=== PATIENT | male | born 1950 | race Caucasian/White ===

== ENCOUNTER 2017-02-03 13:18 | Observation (INO) | payer MEDICARE, OTHER ==
[~2017-02-03] VITALS: Ht 188 cm; Wt 112.8 kg
--- NOTE | ~2017-02-03 | HEMODYNAMI ---
PATIENT:ARTURO BRICENO MEDICAL RECORD: [id number] : 46 LOCATION:[facility] D.2121 ADMISSION DATE: 02/03/17 Generatedon:02/04/20178:55 Patient name: ARTURO BRICENO Patient #: [id number] SSN: DO B: 1950 Date of study: 02/04/2017 Page: Of Hemodynamic Procedure Report Patient Data Patient Demographics Procedure consent was obtained First Name: ARTURO Gender: Male Last Name: KAITY : 1950 Middle Initial: L Age: 66 year(s) Patient #: [id number] Race: Unknown Additional ID: [id number] Contact details [address]: [address] [place] [address] State: [place] City: [place] Zip code: [address] Past Medical History Allergies Allergen Reaction Date Comments Reported Other allergy 05/30/2015 Other allergy 05/30/2015 CODIENE, Other allergy 02/04/2017 Codeine Admission Admission Data Admission Date: 02/03/2017 Admission Time: 14:56 Room #: D.2121 Lab Results Lab Result Date: 02/04/2017 Lab Result Time: 4:33 Biochemistry Name Units Result Min Max BUN mg/dl 12 --(-*--)-- 7 18 Creatinine mg/dl 0.8 --(-*--)-- 0.6 1.3 CBC Name Units Result Min Max Hematocrit % 36.1 *-(----)-- 42 54 Hemoglobin g/dl 12.1 *-(----)-- 13.5 17.5 Procedure Procedure Types Cath Procedure Diagnostic Procedure LHC [facility] w/Coronaries Miscellaneous Procedures Moderate Sedation up to 30 minutes Procedure Description Procedure Date Procedure Date: 02/04/2017 Procedure Start Time: 8:32 Procedure End Time: 8:54 Procedure Staff Name Function Cash Ho MD Performing Physician Marian Cabrera RT Scrub Jesi Quiñonez RN Nurse Ok Franz RT Monitor Joaquin Aguilar RN Synthetic Cloth Binding Cutter Procedure Data Cath Procedure Fluoroscopy Diagnostic fluoroscopy Total fluoroscopy Time: 4.3 time: 4.3 min min Diagnostic fluoroscopy Total fluoroscopy dose: dose: 1094 mGy 1094 mGy Contrast Material Contrast Material Type Amount (ml) Isovue 300 114 Entry Location Entry Primary Successful Side Size Upsize Upsize Entry Closure Mims ccessful Closure Location (Fr) 1 (Fr) 2 (Fr) Remarks Device Remarks Radial Right 6 Fr Mechanical artery Short Compression Estimated blood loss: 5 ml Diagnostic catheters Device Type Used For End Catheter Placement Terumo Optitorque 5Fr Procedure Connie catheter Diagnostic Terumo 5Fr Procedure [place] 110cm catheter Terumo 5Fr Bryan 110cm Procedure catheter Procedure Complications No complications Procedure Medications Medication Administration Route Dosage Oxygen NC 2 l/min Lidocaine 2% added to field 20 Heparin Flush Bag added to field 2 bags (1000units/500ml NS) 0.9% NaCl I.V. 100 ml/hr Versed I.V. 1 mg Fentanyl I.V. 50 mcg Versed I.V. 1 mg Fentanyl I.V. 50 mcg Radial Cocktail I.A. 1 syringe (Verapomil 2mg/Nitro 400mcg/Heparin 1500units) Versed I.V. 1 mg Fentanyl I.V. 50 mcg Fentanyl I.V. 25 mcg Hemodynamics Rest HGB: 12.1 (g/dl) Heart Rate: 84 (bpm) Pressure Samples Time Site Value (mmHg) Purpose Heart Use Rate(bpm) 8:37 LV 144/9,30 Snapshot 77 8:38 AO 123/72(95) Pullback 80 8:38 LV 130/4,19 Pullback 80 Gradients Valve Time Site 1 Site 2 Mean SEP/DFP Peak To Heart Use (mmHg) (sec/min) Peak Rate (mmHg) (bpm) Aortic 8:38 LV AO 16 19 7 80 130/4,19 123/72(95) Calculations Valve P-P Mean Valve Index Valve Source Name Gradient Area Flow (cm2) Aortic 7 16 7 16 Snapshots Pre Cath Intra NCS Post Cath Vital Signs Time Heart Resp SPO2 etCO2 [id number] NIBP (mmHg) Rhythm Pain Status Se dation Rate (ipm) (%) (mmHg) (mmHg) Level (bpm) 8:10:25 87 17 100 0 0 207/109(135) NSR 2 (11) , 10 (A) Uncomfortable 8:14:53 84 17 99 0 0 207/99(146) NSR 2 (11) , 10 (A) Uncomfortable 8:19:17 84 16 98 0 0 190/90(137) NSR 2 (11) , 10 (A) Uncomfortable 8:23:41 84 15 95 0 0 186/84(131) NSR 2 (11) , 10 (A) Uncomfortable 8:28:14 84 17 97 0 0 194/86(129) NSR 0 (11) , No 9( A) pain 8:33:42 85 17 95 0 0 198/92(134) NSR 0 (11) , No 9( A) pain 8:38:18 85 17 94 0 0 189/77(116) NSR 0 (11) , No 9( A) pain 8:42:42 85 16 95 0 0 182/83(110) NSR 0 (11) , No 9( A) pain 8:48:12 87 18 96 0 0 195/75(114) NSR 0 (11) , No 9( A) pain 8:53:52 88 18 96 0 0 187/76(117) NSR 0 (11) , No 10 (A) pain Medications Time Medication Route Dose Verified Delivered Reason Notes E ffectiveness by by 8:13:20 Oxygen NC 2 l/min Cash Buffie used for Vic Quiñonez RN procedure 8:13:26 Lidocaine 2% added 20ml Cash Cash for local to vial Vic Ho MD anesthetic field 8:13:32 Heparin Flush added 2 bags Cash Cash used for Bag to Vic Ho MD procedure (1000units/500ml field NS) 8:13:42 0.9% NaCl I.V. 100 Cash Buffie Per ml/hr Vic Quiñonez RN physician 8:24:39 Versed I.V. 1 mg Cash Buffie for sedation Vic Quiñonez RN 8:24:46 Fentanyl I.V. 50 mcg Cash Buffie for sedation Vic Quiñonez RN 8:30:30 Versed I.V. 1 mg Cash Buffie for sedation Vic Quiñonez RN 8:30:33 Fentanyl I.V. 50 mcg Cash Buffie for sedation Vic Quiñonez RN 8:36:24 Fentanyl I.V. 25 mcg Cash Buffie for sedation Vic Quiñonez RN 8:36:41 Radial Cocktail I.A. 1 Cash Cash for (Verapomil syringe Vic Ho MD vasodilation 2mg/Nitro 400mcg/Heparin 1500units) 8:46:17 Versed I.V. 1 mg Cash Estevanie for sedation Vic Quiñonez RN 8:46:21 Fentanyl I.V. 50 mcg Cash Dennison for sedation Vic Quiñonez RN Procedure Log Time Note 7:44:40 Joaquin Aguilar RN sent for patient. Start room use. 7:44:41 Time tracking: Regular hours 7:44:45 Plan of Care:Hemodynamics will remain stable., Cardiac rhythm will remain stable., Comfort level will be maintained., Respiratory function will remain adequate., Patient/ family verbilizes understanding of procedure., Procedure tolerated without complication., Recovers from procedure without complications.. 8:01:46 Patient received from PCU to CCL 1 Alert and oriented. Tansferred to table in Supine position. 8:01:47 Warm blankets applied, and leila hugger turned on for patient comfort. 8:01:48 Correct patient and procedure confirmed by team. 8:01:49 Signed procedure consent form obtained from patient. 8:01:50 ECG and BP/O2 sat monitors applied to patient. 8:02:36 H&P Date Dictated: 02/03/2017 Within 30 days and on chart.. 8:02:38 Pre-procedure instructions explained to patient. 8:02:39 Pre-op teaching completed and patient verbalized understanding. 8:08:05 Vital chart was started 8:13:20 Oxygen 2 l/min NC was administered by Jesi Quiñonez RN; used for procedure; 8:13:26 Lidocaine 2% 20ml vial added to field was administered by Cash Ho MD; for local anesthetic; 8:13:32 Heparin Flush Bag (1000units/500ml NS) 2 bags added to field was administered by Cash Ho MD; used for procedure; 8:13:42 0.9% NaCl 100 ml/hr I.V. was administered by Jesi Quiñonez RN; Per physician; 8:14:50 Baseline sample Acquired. 8:15:07 Baseline sample Acquired. 8:15:13 Rhythm: paced 8:15:19 Family in patients room. 8:15:23 Patient NPO since Midnight. 8:15:32 Patient allergic to Other allergyCodeine 8:15:36 Is the patient allergic to Iodine/contrast media? No. 8:15:39 Is patient on blood thinner?Yes 8:15:41 ACC The patient was administered the following blood thiners within the last 24 hours: ACCPlavix 8:15:46 Patient diabetic? Yes. 8:15:47 If diabetic: On Metformin? No 8:15:51 Previous problem with sedation/anesthesia? No ? 8:15:51 Snore? Yes 8:15:54 Sleep apnea? No 8:15:56 Deviated septum? No 8:15:57 Opens mouth fully? Yes 8:15:58 Sticks out tongue? Yes 8:15:59 Airway obstruction? No ? 8:16:01 Dentures? No ? 8:16:06 Pre procedure: right dorsailis pedis pulse 2+ Normal; easily identifiable; not easily obliterated 8:16:08 Pre procedure: left dorsailis pedis pulse 2+ Normal; easily identifiable; not easily obliterated 8:16:10 Modified Candido's test Ulnar < 7 seconds 8:16:12 Patient pain scale 2/10 ?. 8:16:17 IV patent on arrival in right forearm with 0.9% NaCl at [facility]. 8:16:53 Lab Result : BUN 12 mg/dl 8:16:53 Lab Result : Hemoglobin 12.1 g/dl 8:16:53 Lab Result : Creatinine 0.8 mg/dl 8:16:53 Lab Result : Hematocrit 36.1 % 8:18:17 IV Extension Set opened to sterile field. 8:21:07 Lab results completed and on chart. 8:21:11 Right Radial & Left Groin area was prepped with chlora-prep and draped in sterile fashion 8:21:13 Alarms reviewed by R. N. 8:21:13 Sharps counted by scrub and verified by R.N. 8:21:15 Physician arrived 8:21:22 Use device set Radial Dx 8:21:23 MBrace Wrist Support opened to sterile field. 8:21:24 Tegaderm 4 x 4 opened to sterile field. 8:21:25 Acist Manifold opened to sterile field. 8:21:25 Acist Hand Control opened to sterile field. 8:21:26 High Pressure Extension Tubing (Ho) opened to sterile field. 8:: Acist Syringe opened to sterile field. 8:: Medline Cath Pack opened to sterile field. 8::28 Bag Decanter opened to sterile field. 8:: St Jonas 260cm J .035 wire opened to sterile field. 8::34 --------ALL STOP TIME OUT------ 8:: Final Timeout: patient, procedure, and site verified with staff and physician. All members of the team are in agreement. 8:21:36 Right Radial & Left Groin site verified by team. 8::38 Physical assessment completed. ASA score P 2 - A patient with mild systemic disease as per Cash Ho MD. 8::41 Sedation plan: IV Moderate Sedation Versed, Fentanyl 8:24:39 Versed 1 mg I.V. was administered by Jesi Quiñonez RN; for sedation; 8:24:46 Fentanyl 50 mcg I.V. was administered by Jesi Quiñonez RN; for sedation; 8:25:04 Zero performed for pressure channel P1 8:25:16 Merit Prelude 6Fr Radial Sheath (NO COST SUPPLY) opened to sterile field. 8:25:36 Zero performed for pressure channel P1 8:30:30 Versed 1 mg I.V. was administered by Jesi Quiñonez RN; for sedation; 8:30:33 Fentanyl 50 mcg I.V. was administered by Jesi Quiñonez RN; for sedation; 8:32:04 Procedure started. 8:32:04 Full Disclosure recording started 8:32:09 Local anesthetic to right radial artery with Lidocaine 2% by Cash Ho MD.INITIAL ACCESS ONLY 8:32:17 A 6 Fr Short sheath was inserted into the Right Radial artery 8:36:24 Fentanyl 25 mcg I.V. was administered by Jesi Quiñonez RN; for sedation; 8:36:35 A rSmart Optitorque 5Fr Connie catheter was advanced over the wire and used for Procedure. 8:36:41 Radial Cocktail (Verapomil 2mg/Nitro 400mcg/Heparin 1500units) 1 syringe I.A. was administered by Cash Ho MD; for vasodilation; 8:37:36 LV gram done using COSME 8:37:38 Injector settings: Ml/sec: 5, Volume: 15, 8:38:03 EF : 20 % 8:38:16 LV hemodynamics recorded. 8:38:53 LCA angiography performed. 8:40:06 RCA angiography performed. 8:40:11 Catheter exchanged over wire. 8:40:32 A Diagnostic Terumo 5Fr [place] 110cm catheter was advanced over the wire and used for Procedure. 8:41:51 LCA angiography performed. 8:44:37 Catheter exchanged over wire. 8:45:38 A Terumo 5Fr Bryan 110cm catheter was advanced over the wire and used for Procedure. 8:46:17 Versed 1 mg I.V. was administered by Jesi Quiñonez RN; for sedation; 8:46:21 Fentanyl 50 mcg I.V. was administered by Jesi Quiñonez RN; for sedation; 8:47:02 LCA angiography performed. 8:49:28 Catheter removed. 8:49:36 Terumo TR Band Standard opened to sterile field. 8:50:14 Sheath removed intact; hemostasis achieved with Mechanical Compression to the Right Radial artery. 8:50:16 Procedure ended.(Physican Out) 8:51:26 Fluoroscopy time 04.30 minutes. 8:51:54 Fluoroscopy dose: 1094 mGy 8:51:54 Flurop Dose total: 1094 8:51:58 Contrast amount:Isovue 300 114ml. 8:51:59 Sharps counted by scrub and verified by R.N. 8:52:01 TR band inflated with 10cc of air. 8:52:03 Insertion/operative site no bleeding no hematoma. 8:52:09 Post right radial artery:stable, soft, clean and dry 8:52:10 Post Procedure Pulses reassessed and unchanged 8:52:12 Post-procedure physical assessment completed. ASA score P 2 - A patient with mild systemic disease as per Cash Ho MD. 8:52:14 Post procedure rhythm: unchanged. 8:52:18 Estimated blood loss: 5 ml 8:52:19 Post procedure instruction explained to patient.Patient verbalizes understanding. 8:52:19 Patient needs reinforcement of post procedure teaching. 8:53:09 Procedure type changed to Cath procedure, Diagnostic procedure, LHC, LHC w/Coronaries, Miscellaneous Procedures, Moderate Sedation up to 30 minutes 8:54:24 Procedure and supply charges have been captured, reviewed, submitted and are correct. 8:54:26 Procedure Complication : No complications 8:54:28 Vital chart was stopped 8:54:29 See physician's report for complete and final results. 8:54:32 Report given to PCU. 8:54:34 Patient transfered to PCU with Stretcher. 8:54:36 Procedure ended. 8:54:36 Full Disclosure recording stopped 8:54:45 End room use (Document Last) Device Usage Item Name Manufacture Quantity Catalog Hospital Part Current Minimal Lot# / Number Charge Number Stock Stock Serial# Code IV Hospira 1 71949-50 [id number] 29519 151070 5 Extension Set MBrace Advanced 1 140-0250-00 882996 77613 621639 5 Wrist Vascular Support Dynamics Tegaderm 4 3M 1 1626W 538220 096621 857286 5 x 4 Acist Acist 1 50738 372541 057152 609943 5 Manifold Medical Systems Inc Acist Hand Acist 1 59645 297558 972469 455044 5 Control Medical [employer] Inc High Merit 1 [id number] 607523 51336 693592 10 Pressure Medical Extension Tubing (Ho) Acist Acist 1 68039 824858 832037 100445 20 Syringe Medical Systems Inc Medline Cardinal 1 [id number] 132369 21636 036036 5 Cath Pack Health Bag Microtek 1 2002S 305394 44837 487258 [address] Jonas St Jonas 1 156318 925625 103074 855750 30 260cm J .035 wire Merit Merit 1 [id number] 656956 547383 5 Prelude Medical 6Fr Radial Sheath (NO COST SUPPLY) Terumo Terumo 1 40-8183 953419 170288 400363 5 Optitorque 5Fr Connie catheter Diagnostic Terumo 1 40-7470 716380 821455 957438 5 Terumo 5Fr [place] 110cm catheter Terumo 5Fr Terumo 1 40-2260 287231 179586 854885 5 Bryan 110cm catheter Terumo TR Terumo 1 [id number] 355470 763045 481399 40 Band Standard Signature Audit [place] Stage Time Signature Unsigned Intra-Procedure 02/04/2017 Ok Franz 8:55:27 AM RT(R) Signatures Monitor : Ok Franz RT Signature : Date : Time : [facility] [address] [place] [address]
[~2017-02-03 13:18] MED LIST: ANDROGEL5 GM; ASPIRIN EC81 M1 PO; BUSPAR10 MG PO; COREG6.25 MG PO; CRESTOR20 MG PO; DESYREL50 MG PO; DIABETA5 MG PO; GLUCOTROL 5 MG T5 MG PO; IPRAT-ALBUT 0.5-3 ML UPD; ISOSORBIDE PO; JANUMET 50-1,001 TAB PO; KLONOPIN0.5 MG PO; LEVAQUIN750 MG PO; LIPITOR40 MG PO; LISINOPRIL5 MG PO; OMEPRAZOLE20 M1 PO; PLAVIX75 MG PO; PRILOSEC20 MG PO; PRINIVIL10 MG PO; TRAZODONE HCL50 MG PO; TRICOR145 MG PO; TUSSIONEX PENN473 ML PO; XANAX0.25 MG PO
[2017-02-03 13:51] LABS: BASOPHILS 0.5 % (0-2); HEMATOCRIT 35.6 % (42.0-54.0); IMMATURE GRANULOCYTES 0.5 % (0-5); LYMPHOCYTES 30.4 % (15-50); MCH 28.4 pg (26.0-34.0); MCHC 33.7 g/dL (31.0-37.0); MCV 84.4 fL (80.0-100.0); MEAN PLATELET VOLUME 10.8 fL (7.4-10.4); MONOCYTES 8.7 % (2-11); NEUTROPHILS 52.9 % (40-80); RBC 4.22 10x6/uL (4.20-6.10); WBC 6.3 10x3/uL (4.8-10.8)
[2017-02-03 14:02] LABS: PLATELET COUNT 161 10x3/uL (130-400)
[2017-02-03 14:03] LABS: ALBUMIN 3.7 g/dL (3.4-5.0); ALKALINE PHOSPHATASE 27 U/L (46-116); ALT (SGPT) 33 U/L (10-68); BILIRUBIN - TOTAL 0.25 mg/dL (0.2-1.3); CALC OSMOLALITY 285 mosm/kg (275-300); CALCIUM 8.4 mg/dL (8.5-10.1); CARBON DIOXIDE 26.8 mmol/L (21.0-32.0); CHLORIDE - SERUM 103 mmol/L (98-107); CREATININE - SERUM 0.9 mg/dL (0.6-1.3); GLUCOSE 228 mg/dL (74-106); POTASSIUM - SERUM 4.8 mmol/L (3.5-5.1); PROTEIN - SERUM 6.8 g/dL (6.4-8.2); SODIUM 139 mmol/L (136-145); UREA NITROGEN 14 mg/dL (7-18); eGFR NON AFRICAN AMERICAN 89 mL/min (90-120)
[2017-02-03 14:18] LABS: CHOLESTEROL, TOTAL 129 mg/dL (0-200); CKMB 1.7 U/L (0.0-3.6); CREATINE KINASE 109 UL (21-232); HDL CHOLESTEROL 26 mg/dL (32-96); LDL CHOLESTEROL 56 mg/dL (0-100); LDL-HDL RATIO 2.2 ratio (1.5-3.5); MAGNESIUM - SERUM 1.7 mg/dL (1.8-2.4); PRO BNP 405 pg/mL (0-125); TRIGLYCERIDE 235 mg/dL (30-200); TROPONIN-I 0.017 ng/mL (0.000-0.060)
--- NOTE | 2017-02-03 16:28 | NUR ---
DC GIVEN TO PT AND FAMILY
--- NOTE | 2017-02-03 17:29 | NUR ---
TRANSFER FROM ER BY W/C. MELISAINTED TO ROOM. CALL LIGHT IN REACH. WILL CONT. PLAN OF CARE.
[2017-02-03] MEDS ORDERED: XARELTO20 MG PO (17:33)
[2017-02-03] MEDS ORDERED: LANTUS SOL100 UNIT/1 SC (17:34)
[2017-02-03] MEDS ORDERED: NOVOLOG100 U/M1 SC (17:36)
--- NOTE | 2017-02-03 17:43 | NUR ---
RECIVED FROM ER PER WC TO ROOM 2121. ADMIT ASSESSMENT PER RN.
--- NOTE | 2017-02-03 17:56 | NUR ---
AT SIDE. DENIES NEEDS.
[2017-02-03 18:08] VITALS: BP 151/88; Ht 188 cm; Wt 112.8 kg
--- NOTE | 2017-02-03 19:31 | NUR ---
RECEIVED REPORT, WILL ASSUME CARE OF PT, PT SITTING UP IN BED READING A BOOK, BED IS LOW, SRX2, CALL LIGHT IN REACH, PT DENIES ANY NEEDS AT THIS TIME, WILL CONTINUE PLAN OF CARE
[2017-02-03 20:59] VITALS: BP 129/68
--- NOTE | 2017-02-04 00:08 | NUR ---
ASSESSMENT COMPLETE, SEE FLOWSHEET, PT SLEEPING, BED IS LOW, SRX2, CALL LIGHT IN REACH, WILL CONTINUE PLAN OF CARE
[2017-02-04 01:20] VITALS: BP 133/83
--- NOTE | 2017-02-04 03:33 | NUR ---
RECIEVED REPORT FROM EMILIANO TANNER @ 5116, INTRODUCED SELF TO PATIENT, HE WAS LAYING IN BED AWAKE. DENIES PAIN/NEEDS ATT. NO SIGNS OF DISTRESS NOTED. ON TELEMETRY WITH A PACED SR @ 77. BED LOW AND LOCKED, CALL LIGHT IN REACH. WILL CPOC.
[2017-02-04 04:38] LABS: BASOPHILS 0.8 % (0-2); EOSINOPHILS 8.2 % (0-7); HEMATOCRIT 36.1 % (42.0-54.0); HEMOGLOBIN 12.1 g/dL (13.5-17.5); IMMATURE GRANULOCYTES 0.6 % (0-5); LYMPHOCYTES 34.2 % (15-50); MCH 28.6 pg (26.0-34.0); MCHC 33.5 g/dL (31.0-37.0); MCV 85.3 fL (80.0-100.0); MEAN PLATELET VOLUME 10.5 fL (7.4-10.4); MONOCYTES 8.5 % (2-11); NEUTROPHILS 47.7 % (40-80); PLATELET COUNT 155 10x3/uL (130-400); RBC 4.23 10x6/uL (4.20-6.10); WBC 6.6 10x3/uL (4.8-10.8)
[2017-02-04 05:02] LABS: ALBUMIN 3.6 g/dL (3.4-5.0); ALKALINE PHOSPHATASE 26 U/L (46-116); ALT (SGPT) 30 U/L (10-68); BILIRUBIN - TOTAL 0.25 mg/dL (0.2-1.3); CALC OSMOLALITY 283 mosm/kg (275-300); CALCIUM 8.2 mg/dL (8.5-10.1); CARBON DIOXIDE 30.8 mmol/L (21.0-32.0); CHLORIDE - SERUM 104 mmol/L (98-107); CREATININE - SERUM 0.8 mg/dL (0.6-1.3); GLUCOSE 194 mg/dL (74-106); POTASSIUM - SERUM 4.4 mmol/L (3.5-5.1); PROTEIN - SERUM 6.6 g/dL (6.4-8.2); SODIUM 140 mmol/L (136-145); UREA NITROGEN 12 mg/dL (7-18); eGFR NON AFRICAN AMERICAN > 90 mL/min (90-120)
[2017-02-04 05:04] VITALS: BP 137/83
--- NOTE | 2017-02-04 07:57 | NUR ---
ASSESSMENRT DONE. DENIES NEEDS.
--- NOTE | 2017-02-04 08:00 | NUR ---
TO FELLING MACHINE OPERATOR PER BED
[2017-02-04 08:12] VITALS: BP 136/78
--- NOTE | 2017-02-04 09:10 | NUR ---
RECIVED FROM DE ALCHOLIZER PER BED, TR-BAND TO RT WRIST. AT SIDE.
--- NOTE | 2017-02-04 09:14 | NUR ---
BACK FROM DATA OFFICER. VS WNL. TR BAND INTACT RIGHT WRIST. WILL MONITOR.
--- NOTE | 2017-02-04 10:00 | NUR ---
TR-BAND REMAINS IN PLACE. CONT TO BLEED WHEN 1/2 AIR REMOVED
--- NOTE | 2017-02-04 11:00 | NUR ---
TR-BAND IN PLACE
--- NOTE | 2017-02-04 12:00 | NUR ---
AT SIDE. WITHOUT CHANGES NOTED.
--- NOTE | 2017-02-04 13:00 | NUR ---
1/2 AIR REMOVED. NO BEEDING NOTED.
--- NOTE | 2017-02-04 13:30 | NUR ---
REMAINING AIR REMOVED, NO BLEEDING NOTED.
--- NOTE | 2017-02-04 14:06 | NUR ---
DC GIVEN TO PT AND
--- NOTE | 2017-02-04 14:55 | NUR ---
DC HOME PER PERSONAL CAR
== END 2017-02-04 14:55 | disposition home or self-care (01) ==
LOC: D.ER 13:18 → OBSVTIME 14:56 → D.M2 14:56
PROVIDERS: Emergency Medicine; ADMIT Family Medicine
DX: I25.110 Atherosclerotic heart disease of native coronary artery with unstable angina pectoris (principal); Z95.5 Presence of coronary angioplasty implant and graft; I11.0 Hypertensive heart disease with heart failure; I50.9 Heart failure, unspecified; E11.65 Type 2 diabetes mellitus with hyperglycemia; R94.39 Abnormal result of other cardiovascular function study; Z95.0 Presence of cardiac pacemaker; I25.5 Ischemic cardiomyopathy

== ENCOUNTER → 2019-06-23 12:41 | Outpatient (CLI) | payer MEDICARE, OTHER ==
[2017-02-03 18:08] VITALS: BMI 32.0
[~2019-06-23 12:41] MED LIST changes: +LANTUS SOL100 UNIT/1 SC; +NOVOLOG100 U/M1 SC; +XARELTO20 MG PO
== END | disposition home or self-care (01) ==
LOC: D.US 12:41
PROVIDERS: ATTEND Orthopaedic Surgery
DX: R22.42 Localized swelling, mass and lump, left lower limb (principal)